=== PATIENT | male | born 1955 | race Caucasian/White ===

== ENCOUNTER → 2019-05-21 | Outpatient (CLI) | payer OTHER | END | disposition home or self-care (01) | LOC: RAH 10:39 | PROVIDERS: ATTEND Internal Medicine Critical Care Medicine | DX: I50.9 Heart failure, unspecified (principal) | CPT/HCPCS: 71046 ==

== ENCOUNTER → 2024-07-06 | Outpatient (CLI) | payer OTHER ==
[~2024-07-06] MED LIST: IOHEXOL-350 75 ML VIAL IV ONE
== END | disposition home or self-care (01) ==
LOC: RAH 10:19
PROVIDERS: ATTEND Internal Medicine
DX: N28.1 Cyst of kidney, acquired (principal); R19.01 Right upper quadrant abdominal swelling, mass and lump
CPT/HCPCS: 74178; Q9967

== ENCOUNTER → 2024-07-27 | Outpatient (CLI) | payer OTHER | END | disposition home or self-care (01) | LOC: RAH 11:49 | PROVIDERS: ATTEND Surgery | DX: D12.2 Benign neoplasm of ascending colon (principal); M47.815 Spondylosis without myelopathy or radiculopathy, thoracolumbar region | CPT/HCPCS: 71260; Q9967 ==

== ENCOUNTER → 2025-06-06 | Outpatient (CLI) | payer OTHER ==
[~2025-06-06] MED LIST changes: +CARV12.511 PO; +HYDR12.54 PO; -IOHEXOL-350 75 ML VIAL IV ONE; +ROSU40TA88 PO; +TAMS-55 PO; +TELM80TA10 PO
[2025-06-06 14:24] LABS: CREATININE 1.0 mg/dL (0.5-1.3); GLOMERULAR FILTR. RATE CALC 81.0 mL/min (>90); UREA NITROGEN, BLOOD 12.0 mg/dL (7-18)
== END | disposition home or self-care (01) ==
LOC: LAB 12:58
PROVIDERS: ATTEND Internal Medicine Gastroenterology
DX: C18.2 Malignant neoplasm of ascending colon (principal); R10.13 Epigastric pain
CPT/HCPCS: 36415; 82565; 84520

== ENCOUNTER → 2025-06-11 | Outpatient (CLI) | payer OTHER ==
[~2025-06-11] MED LIST changes: +IOHEXOL 350 MG/ML 100ML INFUS..BTL IV ONE
--- NOTE | 2025-06-12 10:26 | HMCIMG ---
EXAM: CT Abdomen and Pelvis with and without IV contrast CLINICAL HISTORY: EPIGASTRIC PAIN; MALIGNANT NEOPLASM OF ASCENDING COLON TECHNIQUE: Axial computed tomography images of the abdomen and pelvis with and without intravenous contrast. CONTRAST: with and without intravenous contrast. COMPARISON: Study dated 07/06/24. FINDINGS: LUNG BASES: Dependent airway disease along bilateral lower lobes, presumed to represent basal atelectasis. No pleural effusions are seen. LIVER: Unremarkable. GALLBLADDER AND BILE DUCTS: The gallbladder appears within normal limits. No radioopaque gallstones are seen. No biliary ductal dilatation is evident. PANCREAS: Unremarkable. SPLEEN: Unremarkable. ADRENAL GLANDS: Unremarkable. KIDNEYS, URETERS, AND BLADDER: A few cysts in the left kidney, the largest measuring 2.3 x 2.0 cm. Mild bilateral perinephric fat stranding is concerning for renal parenchymal disease. There is no hydronephrosis or hydroureter. No urinary calculi are seen. STOMACH AND BOWEL: Colonic diverticulosis without diverticulitis. Postoperative status of the ascending colon. The rest of the bowel loops appear normal, with no abnormal wall thickening or residual lesions. No evidence of bowel obstruction. No evidence suggesting enteritis or colitis. PERITONEUM: No free fluid. No free air. LYMPH NODES: No lymphadenopathy is evident. REPRODUCTIVE: The prostate is mildly enlarged with intra-prostatic calcifications. VASCULATURE: Atherosclerotic changes in the form of eccentric vessel wall calcification in the abdominal aorta and its major branches. No evidence of abdominal aortic aneurysm. BONES: Degenerative changes in the visualized spine in the form of marginal osteophytes and degenerative discs at multiple lumbar levels. No aggressive appearing osseous lesion. No acute osseous pathology evident. IMPRESSION: 1. No acute intra-abdominal or pelvic pathology. 2. Postoperative changes of the ascending colon, without evidence of recurrent disease . 3. Colonic diverticulosis without diverticulitis. /[place]
== END | disposition home or self-care (01) ==
LOC: RAH 08:20
PROVIDERS: ATTEND Internal Medicine Gastroenterology
DX: C18.2 Malignant neoplasm of ascending colon (principal); K57.30 Diverticulosis of large intestine without perforation or abscess without bleeding; J98.11 Atelectasis; N28.1 Cyst of kidney, acquired; N40.0 Benign prostatic hyperplasia without lower urinary tract symptoms; I70.0 Atherosclerosis of aorta; M47.816 Spondylosis without myelopathy or radiculopathy, lumbar region; R10.13 Epigastric pain; M25.78 Osteophyte, vertebrae
CPT/HCPCS: 74178; Q9967